=== PATIENT | female | born 1980 | race Caucasian/White ===

== ENCOUNTER 2017-09-18 08:35 | Emergency (ER) | payer OTHER ==
[2017-09-18] MEDS: HYDROCODONE/APAP (5/325) TAB PO (09:59)
== END 2017-09-18 11:07 | disposition home or self-care (01) ==
LOC: FTE 08:35
DX: S40.012A Contusion of left shoulder, initial encounter (principal); W22.8XXA Striking against or struck by other objects, initial encounter; Y92.9 Unspecified place or not applicable
CPT/HCPCS: 73030; 99283-25

== ENCOUNTER 2018-01-29 07:56 | Emergency (ER) | payer OTHER ==
[2018-01-29] MEDS: ONDANSETRON (ODT) 4 MG TAB ODT (08:32)
[2018-01-29] MEDS: HYDROCODONE/APAP (5/325) TAB PO (08:33)
== END 2018-01-29 09:21 | disposition home or self-care (01) ==
LOC: FTE 07:56
DX: M25.572 Pain in left ankle and joints of left foot (principal)
CPT/HCPCS: 73610; 99283-25

== ENCOUNTER 2018-04-10 07:11 | Emergency (ER) | payer OTHER ==
[2018-04-10] MEDS ORDERED: ASPIRIN (EC) 325 MG TAB PO (08:00)
== END 2018-04-10 08:44 | disposition left against medical advice (07) ==
LOC: FTE 08:44
DX: M54.5 Low back pain (principal); R40.2412 Glasgow coma scale score 13-15, at arrival to emergency department
CPT/HCPCS: 99282; Z7502